=== PATIENT | female | born 1955 | race Caucasian/White ===

== ENCOUNTER 2018-12-05 11:09 | Outpatient (CLI) | payer MEDICARE ==
--- NOTE | 2018-12-05 14:25 | ULT ---
THYROID ULTRASOUND: History: Thyroid nodule. Technique: Multiple longitudinal and transverse images of the thyroid gland is obtained using a multi hertz transducer. FINDINGS/IMPRESSION: Real-time and color flow images demonstrate visualization of both thyroid lobes. The right thyroid lo be measures 3.9 x 1.5 x 1.4 cm while the left measures 3.4 x 1.5 x 1.2 cm. There is a small complex area of mixed echogenicity of the right thyroid lobe measuring 7 x 8 x 7 mm. Correlation with follow up sonography. The lesion has fairly well circumscribed margins without evid ence of significant calcifications. Follow up ultrasound in six months is recommended. POS: JP
== END 2018-12-05 11:10 | disposition home or self-care (01) ==
LOC: NAV ULT 11:09
PROVIDERS: ATTEND Family Medicine
DX: E04.1 Nontoxic single thyroid nodule (principal); R93.89 Abnormal findings on diagnostic imaging of other specified body structures
CPT/HCPCS: 76536

== ENCOUNTER 2024-08-05 18:06 | Emergency (ER) | payer MEDICARE | END 2024-08-05 19:15 | disposition home or self-care (01) | LOC: NAV ERS 18:06 | DX: R42 Dizziness and giddiness (principal); R29.700 NIHSS score 0; I10 Essential (primary) hypertension; E11.9 Type 2 diabetes mellitus without complications; I48.91 Unspecified atrial fibrillation; Z79.82 Long term (current) use of aspirin; Z79.899 Other long term (current) drug therapy | CPT/HCPCS: 93005; 99284 ==

== ENCOUNTER 2024-09-14 08:09 | Emergency (ER) | payer MEDICARE ==
[2024-09-14] MEDS ORDERED: Cephalexin 250 MG CAP ONE (08:36)
== END 2024-09-14 08:50 | disposition home or self-care (01) ==
LOC: NAV ERS 08:09
DX: S80.11XA Contusion of right lower leg, initial encounter (principal); L03.115 Cellulitis of right lower limb; E11.9 Type 2 diabetes mellitus without complications; I10 Essential (primary) hypertension; Z79.84 Long term (current) use of oral hypoglycemic drugs; Z79.899 Other long term (current) drug therapy; W01.0XXA Fall on same level from slipping, tripping and stumbling without subsequent striking against object, initial encounter; Y93.89 Activity, other specified
CPT/HCPCS: 99283

== ENCOUNTER 2024-09-16 15:10 | Outpatient (CLI) | payer MEDICARE | END 2024-09-16 15:11 | disposition home or self-care (01) | LOC: NAV RAD 15:10 | PROVIDERS: ATTEND Student in an Organized Health Care Education/Training Program | DX: M79.604 Pain in right leg (principal); M79.89 Other specified soft tissue disorders ==

== ENCOUNTER 2024-10-19 08:10 | Emergency (ER) | payer MEDICARE | END 2024-10-19 09:07 | disposition home or self-care (01) | LOC: NAV ERS 08:10 | DX: L03.115 Cellulitis of right lower limb (principal); I10 Essential (primary) hypertension; E11.9 Type 2 diabetes mellitus without complications | CPT/HCPCS: 99283 ==